=== PATIENT | female | born 1965 | race Caucasian/White ===

== ENCOUNTER 2020-06-17 13:14 | Emergency (ER) | payer OTHER ==
[~2020-06-17] VITALS: Ht 162.6 cm; Wt 44.5 kg
[2020-06-17 13:21] VITALS: BP 106/57
--- NOTE | 2020-06-17 14:06 | NUR ---
dc Patient discharged to home in stable condition. Written and verbal after care instructions given. Patient verbalizes understanding of instruction.
== END 2020-06-17 14:16 | disposition home or self-care (01) ==
LOC: ER 13:18
DX: H60.92 Unspecified otitis externa, left ear (principal); L03.032 Cellulitis of left toe; F32.9 Major depressive disorder, single episode, unspecified; F17.200 Nicotine dependence, unspecified, uncomplicated; Z88.0 Allergy status to penicillin

== ENCOUNTER 2020-07-08 14:17 | Emergency (ER) | payer OTHER ==
[~2020-07-08] VITALS: Ht 162.6 cm; Wt 43.1 kg
[2020-07-08 14:23] VITALS: BP 109/67
--- NOTE | 2020-07-08 14:46 | NUR ---
Patient discharged to home in stable condition. Written and verbal after care instructions given. Patient verbalizes understanding of instruction.
== END 2020-07-08 14:47 | disposition home or self-care (01) ==
LOC: ER 14:19
DX: L03.032 Cellulitis of left toe (principal); F32.9 Major depressive disorder, single episode, unspecified; F17.200 Nicotine dependence, unspecified, uncomplicated; Z88.0 Allergy status to penicillin

== ENCOUNTER 2020-08-10 11:52 | Emergency (ER) | payer OTHER ==
[~2020-08-10] VITALS: Ht 162.6 cm; Wt 45.4 kg
[2020-08-10 12:09] VITALS: BP 123/70
--- NOTE | 2020-08-10 12:27 | NUR ---
Patient discharged to home in stable condition. Written and verbal after care instructions given. Patient verbalizes understanding of instruction. Pt ambulatory with a steady gait
== END 2020-08-10 12:28 | disposition home or self-care (01) ==
LOC: ER 11:58
DX: H60.92 Unspecified otitis externa, left ear (principal); Z88.0 Allergy status to penicillin

== ENCOUNTER 2024-10-07 08:20 | Emergency (ER) | payer OTHER ==
[~2024-10-07] VITALS: Ht 160 cm; Wt 44.0 kg
[2024-10-07 08:30] VITALS: BP 129/76; TEMP 97.9; O2SAT 99
[2024-10-07] MEDS ORDERED: HYDR-3972 PO (08:48)
== END 2024-10-07 09:13 | disposition home or self-care (01) ==
LOC: ER 08:25
DX: M54.2 Cervicalgia (principal); F32.A Depression, unspecified; F17.200 Nicotine dependence, unspecified, uncomplicated; Z88.0 Allergy status to penicillin; Z88.1 Allergy status to other antibiotic agents; Z88.2 Allergy status to sulfonamides

== ENCOUNTER 2025-02-13 09:45 | Emergency (ER) | payer OTHER ==
[~2025-02-13] VITALS: Ht 160 cm; Wt 45.4 kg
[~2025-02-13 09:45] MED LIST: HYDR-3972 PO
[2025-02-13 09:50] VITALS: BP 122/87; TEMP 98
[2025-02-13] MEDS ORDERED: HYDR-4303 PO (10:16)
[2025-02-13 10:23] VITALS: O2SAT 98
== END 2025-02-13 10:23 | disposition home or self-care (01) ==
LOC: ER 09:51
DX: M50.30 Other cervical disc degeneration, unspecified cervical region (principal); G89.29 Other chronic pain; F17.200 Nicotine dependence, unspecified, uncomplicated; Z88.0 Allergy status to penicillin; Z88.1 Allergy status to other antibiotic agents; Z88.2 Allergy status to sulfonamides; Z79.899 Other long term (current) drug therapy